=== PATIENT | male | born 1970 | race Caucasian/White ===

== ENCOUNTER 2019-06-30 01:39 | Emergency (ER) | payer MEDICARE ==
[~2019-06-30] VITALS: Ht 188 cm; Wt 117.9 kg
[~2019-06-30 01:39] MED LIST: BACTRIM DS TAB1 EACH PO; CLOTRIMAZOLE 1%15 G1 TOP; COUMADIN 2 MG TA2 M1 PO; COUMADIN7.5 MG PO; HYDROCODONE-AP1 EAC6 PO; KEFLEX500 MG PO; LASIX 40 MG TAB40 M2 PO; LOVENOX150 MG/1 M SUBQ; MINOCIN100 MG PO; PREDNISONE 20 M20 M1 PO; XARELTO15 MG PO
[2019-06-30 01:59] VITALS: BP 132/86
[2019-06-30] MEDS ORDERED: ZPAK PO ×2 (02:00→02:06)
[2019-06-30] MEDS ORDERED: PROTONIX40 M1 PO ×2 (02:00→02:06)
[2019-06-30] MEDS ORDERED: PREDNISONE 20 M20 M1 PO ×2 (02:00→02:06)
[2019-06-30] MEDS ORDERED: VENTOLIN HFA 1818 GM INH ×2 (02:00→02:06)
[2019-06-30] MEDS ORDERED: XARELTO20 MG PO (02:02)
--- NOTE | 2019-07-01 16:53 | EKG ---
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: : 1970 Requested By: Esteban Livingston Order Number: [id number] MD: Yrn Schaefer Measurements Intervals [place] Rate: 91 P: 44 TX: 170 QRS: 41 QRSD: 125 T: 26 QT: 368 QTc: 453 Interpretive Statements Sinus rhythm Right bundle branch block Abnormal inferior Q waves Compared to ECG 09/16/2017 12:51:26 Right bundle-branch block now present Sinus tachycardia no longer present Intraventricular conduction delay no longer present Electronically Signed On 07-01-2019 16:53:08 CDT by Yrn Schaefer [email or web address] <ELECTRONICALLY SIGNED> By: Yrn Schaefre MD, FACC 07/01/19 1653 0152 0152 Yrn Schaefer MD, FACC /EPI
== END 2019-06-30 02:15 | disposition home or self-care (01) ==
LOC: M.ERS 01:39
DX: J40 Bronchitis, not specified as acute or chronic (principal); F17.210 Nicotine dependence, cigarettes, uncomplicated

== ENCOUNTER 2019-09-28 18:40 | Inpatient (IN) | payer MEDICARE ==
[~2019-09-28] VITALS: Ht 188 cm; Wt 127.5 kg
[~2019-09-28 18:40] MED LIST changes: +PROTONIX40 M1 PO; +VENTOLIN HFA 1818 GM INH; +XARELTO20 MG PO; +ZPAK PO
[2019-09-28 18:44] VITALS: BP 138/101
[2019-09-28] MEDS ORDERED: CIALIS2.5 MG PO (18:48)
[2019-09-28 19:51] LABS: ABSOLUTE EOSINOPHILS 0.2 thou/uL (0.0-0.7); ABSOLUTE LYMPHOCYTES 2.3 thou/uL (0.8-5.3); ABSOLUTE NEUTROPHILS 6.9 thou/uL (1.6-8.1); BASOPHILS 0.4 %; EOSINOPHILS 1.5 %; HEMATOCRIT 38.1 % (42.0-52.0); LYMPHOCYTES 22.1 %; MCHC 34.2 g/dL (28.0-37.0); MCV 93.6 fL (80.0-100.0); MONOCYTES 9.4 %; MPV 7.8 fl. (7.2-11.1); NUCLEATED RBCS 0 /100WBC; PLATELET COUNT* 250 thou/uL (150-400); POLYS 66.6 %; RBC 4.07 mil/uL (4.50-6.00); RDW-CV 13.1 % (10.5-14.5); WBC 10.3 thou/uL (4.0-11.0)
[2019-09-28 20:11] LABS: CALCIUM 8.4 mg/dL (8.5-10.1); CREATININE 1.1 mg/dL (0.6-1.3); POTASSIUM 3.7 mmol/L (3.5-5.1)
[2019-09-28 20:15] LABS: ALBUMIN 3.7 g/dL (3.4-5.0); MAGNESIUM 1.9 mg/dL (1.8-2.4); TOTAL BILIRUBIN 0.3 mg/dL (<0.1-1.0); TOTAL PROTEIN 7.5 g/dL (6.4-8.2)
[2019-09-28 20:24] LABS: INFLUENZA A ANTIGEN Negative (Negative); INFLUENZA B ANTIGEN Negative (Negative)
[2019-09-28 21:53] VITALS: BP 144/96
[2019-09-28 22:20] VITALS: BP 135/91
[2019-09-28] MEDS ORDERED: NICOTINE1 EAC2 TRANSDERM (22:38)
[2019-09-29 04:00] VITALS: BP 161/89
--- NOTE | 2019-09-29 07:23 | NUR ---
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 HE IS ABLE TO COMMUNICATE HIS NEEDS TO STAFF EFFECTIVELY. HE HAS DENIED THE NEED FOR PAIN MEDICATION UP TO THIS TIME. NO CONSULTS ORDERED AT TIME OF ADMISSION.
[2019-09-29 07:51] VITALS: BP 121/90
--- NOTE | 2019-09-29 08:36 | NUR ---
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
--- NOTE | 2019-09-29 11:18 | EKG ---
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 : 1970 Requested By: Glenn Guido Order Number: [id number] MD: Anupam Garcia Measurements Intervals [place] Rate: 113 P: 16 MA: 168 QRS: 42 QRSD: 128 T: 9 QT: 347 QTc: 476 Interpretive Statements Sinus tachycardia Right bundle branch block artifact noted Baseline wander in lead(s) V4 Compared to ECG 06/30/2019 01:52:19 Sinus rhythm no longer present Electronically Signed On 09-29-2019 11:18:14 PERIOPERATIVE MANAGER by Anupam Garcia [email or web address] <ELECTRONICALLY SIGNED> By: Anupam Garcia MD, FAC 09/29/19 1118 [id number] Anupam Garcia MD, [facility] /EPI
[2019-09-29 12:00] VITALS: BP 145/79
[2019-09-29 16:00] VITALS: BP 128/83
[2019-09-29 20:59] VITALS: BP 134/78
[2019-09-29 23:57] VITALS: BP 130/86
[2019-09-30 04:30] VITALS: BP 123/74
[2019-09-30 06:05] LABS: HEMATOCRIT 37.5 % (42.0-52.0); HEMOGLOBIN 12.8 gm/dL (14.0-18.0); MCH 32.3 pg (26.0-34.0); MCHC 34.2 g/dL (28.0-37.0); MCV 94.5 fL (80.0-100.0); MPV 8.5 fl. (7.2-11.1); NUCLEATED RBCS 0 /100WBC; PLATELET COUNT* 252 thou/uL (150-400); RBC 3.96 mil/uL (4.50-6.00); WBC 21.5 thou/uL (4.0-11.0)
[2019-09-30 06:19] LABS: CALCIUM 8.8 mg/dL (8.5-10.1); POTASSIUM 4.2 mmol/L (3.5-5.1)
[2019-09-30 07:19] LABS: ABSOLUTE LYMPHOCYTES 0.6 thou/uL (0.8-5.3); ABSOLUTE MONOCYTES 0.4 thou/uL (0.0-1.2); ABSOLUTE NEUTROPHILS 20.4 thou/uL (1.6-8.1)
[2019-09-30 07:20] LABS: PLATELET ESTIMATE ADEQUATE; TOXIC GRANULATION 2+
[2019-09-30 07:35] VITALS: BP 110/59
--- NOTE | 2019-09-30 08:17 | NUR ---
PT IS ABLE TO COMMUNICATE HIS NEEDS TO STAFF EFFECTIVELY. HE HAS DENIED THE NEED FOR PAIN MEDICATION UP TO THIS TIME. PT STILL NEEDING SOME SUPPLEMENTAL O2 OVERNIGHT.
--- NOTE | 2019-09-30 08:36 | NUR ---
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
[2019-09-30] MEDS ORDERED: PROTONIX40 M1 PO (10:29)
[2019-09-30] MEDS ORDERED: VENTOLIN HFA INH8 GM INH (10:30)
[2019-09-30] MEDS ORDERED: CEFDINIR300 MG PO (10:31)
[2019-09-30] MEDS ORDERED: PREDNISOLONE 5 M5 MG PO (10:34)
[2019-09-30 10:35] VITALS: BP 110/59
== END 2019-09-30 11:56 | disposition home or self-care (01) | DRG 177 ==
LOC: M.ERS 18:40 → M.TBA-ER 20:54 → M.2W 20:54
PROVIDERS: Emergency Medicine Emergency Medical Services; Internal Medicine; ADMIT Internal Medicine
DX: J15.6 Pneumonia due to other Gram-negative bacteria (principal); J96.01 Acute respiratory failure with hypoxia; J44.1 Chronic obstructive pulmonary disease with (acute) exacerbation; J44.0 Chronic obstructive pulmonary disease with (acute) lower respiratory infection; J20.9 Acute bronchitis, unspecified; F17.210 Nicotine dependence, cigarettes, uncomplicated; M25.512 Pain in left shoulder; M25.511 Pain in right shoulder; G89.29 Other chronic pain; Z23 Encounter for immunization; Z86.711 Personal history of pulmonary embolism; Z79.01 Long term (current) use of anticoagulants; Z79.899 Other long term (current) drug therapy

== ENCOUNTER 2019-12-20 17:01 | Emergency (ER) | payer MEDICARE ==
[~2019-12-20] VITALS: Ht 188 cm; Wt 117.9 kg
[~2019-12-20 17:01] MED LIST changes: +CEFDINIR300 MG PO; +CIALIS2.5 MG PO; +NICOTINE1 EAC2 TRANSDERM; +PREDNISOLONE 5 M5 MG PO; +VENTOLIN HFA INH8 GM INH
[2019-12-20] MEDS ORDERED: PROAIR HFA8.5 GM INH (17:11)
[2019-12-20] MEDS ORDERED: COUMADIN 5 MG TA5 M1 PO (18:07)
[2019-12-20] MEDS ORDERED: ENOXAPARIN120 MG/0.1 SUBQ ×2 (18:14→19:06)
[2019-12-20 19:31] VITALS: BP 121/85
--- NOTE | 2019-12-21 09:53 | EKG ---
[place] [address] ELECTROCARDIOGRAM REPORT Name: TAWANA GOLDEN Room: [facility]#: [id number] Admission: 12/20/19 Attend Phys: Discharge: 12/20/19 Date of : 66 Date of Service: 12/20/19 1717 Report #: [id number] THIS REPORT FOR: //name// [facility] ED Test Date: 2019-12-20 Test Time: 17:17:19 Pat Name: TAWANA GOLDEN Department: Room: Gender: Director Radio News: KORI : 1970 Requested By: Rachael Gonzalez Order Number: [id number] MD: Anupam Garcia Measurements Intervals [place] Rate: 111 P: 42 IA: 168 QRS: 69 QRSD: 134 T: -2 QT: 343 QTc: 466 Interpretive Statements Sinus tachycardia Right bundle branch block Probable inferior infarct, age indeterminate Baseline wander in lead(s) V3 Compared to ECG 09/28/2019 18:48:18 no change Electronically Signed On 12-21-2019 9:52:16 CDT by Anupam Garcia [email or web address] <ELECTRONICALLY SIGNED> By: Anupam Garcia MD, FAC 12/21/19 0952 1717 1717 Anupam Garcia MD, [facility] /EPI
== END 2019-12-20 19:32 | disposition left against medical advice (07) ==
LOC: M.ERS 17:01
DX: I82.432 Acute embolism and thrombosis of left popliteal vein (principal); F17.210 Nicotine dependence, cigarettes, uncomplicated

== ENCOUNTER 2020-04-20 20:36 | Emergency (ER) | payer MEDICARE ==
[~2020-04-20] VITALS: Ht 188 cm; Wt 113.4 kg
[~2020-04-20 20:36] MED LIST changes: +COUMADIN 5 MG TA5 M1 PO; +ENOXAPARIN120 MG/0.1 SUBQ; +PROAIR HFA8.5 GM INH
[2020-04-20 21:35] LABS: ABSOLUTE BASOPHILS 0.1 thou/uL (0.0-0.2); ABSOLUTE EOSINOPHILS 0.2 thou/uL (0.0-0.7); ABSOLUTE LYMPHOCYTES 2.4 thou/uL (0.8-5.3); ABSOLUTE MONOCYTES 0.6 thou/uL (0.0-1.2); ABSOLUTE NEUTROPHILS 4.5 thou/uL (1.6-8.1); BASOPHILS 0.7 %; EOSINOPHILS 2.7 %; HEMATOCRIT 38.2 % (42.0-52.0); LYMPHOCYTES 30.8 %; MCH 32.1 pg (26.0-34.0); MCHC 33.9 g/dL (28.0-37.0); MCV 94.5 fL (80.0-100.0); MONOCYTES 7.6 %; MPV 7.7 fl. (7.2-11.1); NUCLEATED RBCS 0 /100WBC; PLATELET COUNT* 259 thou/uL (150-400); POLYS 58.2 %; RBC 4.04 mil/uL (4.50-6.00); RDW-CV 13.8 % (10.5-14.5); WBC 7.7 thou/uL (4.0-11.0)
[2020-04-20 21:38] LABS: CALCIUM 8.5 mg/dL (8.5-10.1); CREATININE 1.3 mg/dL (0.6-1.3); POTASSIUM 3.7 mmol/L (3.5-5.1)
[2020-04-20 21:39] LABS: APTT 29.5 Seconds (25.0-31.3); INR 1.2; PROTIME 12.4 Seconds (9.20-11.50)
[2020-04-20 21:52] LABS: ALBUMIN 3.9 g/dL (3.4-5.0); CK-MB MASS 2.4 ng/mL (<0.5-3.6); TOTAL BILIRUBIN 0.4 mg/dL (<0.1-1.0); TOTAL PROTEIN 7.6 g/dL (6.4-8.2)
[2020-04-20] MEDS ORDERED: NORCO 5-325 TA1 EAC2 PO (22:01)
[2020-04-20] MEDS ORDERED: ZPAK PO (23:57)
[2020-04-20] MEDS ORDERED: VENTOLIN HFA 1818 GM INH (23:57)
[2020-04-21 00:05] VITALS: BP 131/87
--- NOTE | 2020-04-21 11:15 | EKG ---
[place] [address] ELECTROCARDIOGRAM REPORT Name: TAWANA GOLDEN Room: [facility]#: [id number] Admission: 04/20/20 Attend Phys: Discharge: 04/21/20 Date of : 66 Date of Service: 04/20/20 2100 Report #: [id number] THIS REPORT FOR: //name// [facility] ED Test Date: 2020-04-20 Test Time: 21:00:08 Pat Name: TAWANA GOLDEN Department: Room: Gender: Check Processor: JENNIFER : 1970 Requested By: Esteban Livingston Order Number: [id number] MD: Topher Rose Measurements Intervals [place] Rate: 96 P: 32 NM: 180 QRS: 99 QRSD: 126 T: -18 QT: 380 QTc: 481 Interpretive Statements Sinus rhythm Consider left atrial enlargement IVCD of the right type Right precordial ST-T changes; ischemia must be considered Baseline wander in lead(s) II,III,aVF Compared to ECG 12/20/2019 17:17:19 Sinus tachycardia no longer present Electronically Signed On 04-21-2020 11:15:19 CDT by Topher Rose [email or web address] <ELECTRONICALLY SIGNED> By: Topher Rose MD, [facility] 04/21/20 1115 99 99 Topher Rose MD, [facility] /EPI
--- NOTE | 2020-04-21 11:17 | EKG ---
[place] [address] ELECTROCARDIOGRAM REPORT Name: TAWANA GOLDEN Room: [facility]#: [id number] Admission: 04/20/20 Attend Phys: Discharge: 04/21/20 Date of : 66 Date of Service: 04/20/202137 Report #: [id number] THIS REPORT FOR: //name// 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 04/21/20 1116 37 37 Topher Rose MD, [facility] /EPI
== END 2020-04-21 00:07 | disposition home or self-care (01) ==
LOC: M.ERS 20:36
PROVIDERS: Family Medicine
DX: J18.9 Pneumonia, unspecified organism (principal); G89.29 Other chronic pain; F17.210 Nicotine dependence, cigarettes, uncomplicated; Z86.711 Personal history of pulmonary embolism